=== PATIENT | female | born 1965 | race Caucasian/White ===

== ENCOUNTER 2020-01-01 14:07 | Emergency (ER) | payer MEDICAID, SELFPAY ==
[2020-01-01 14:20] VITALS: BP 139/73; PULSE 90; RESP 18; TEMP 36.9; O2SAT 97; BMI 24.3
--- NOTE | 2020-01-01 14:27 | XR_ITS ---
PROCEDURE: XR CHEST PORTABLE CLINICAL HISTORY: cough/respiratory symptoms The under COMPARISON: No exams were available for comparison FINDINGS: The cardiomediastinal silhouette and pulmonary vascularity are within normal limits. The lungs are clear without infiltrates, suspicious nodules, or pleural effusions. No acute bony abnormalities. IMPRESSION: No acute findings. Dictated by: Jonny Verma MD 01/01/2020 15:04 Electronically signed by Jonny Verma MD in [place] 01/01/2020 15:04
[2020-01-01 14:40] LABS: Basophils % 0.6 % (0.1-2.0); Hematocrit 33.6 % (37.0-47.0); Hemoglobin 13.5 g/dL (12.2-16.2); Lymphocytes % 33.3 % (10-50); Mean Corpuscular HGB Conc 40.1 g/dL (31.8-35.4); Mean Corpuscular Hemoglobin 35.6 pg (27.0-31.2); Mean Corpuscular Volume 88.8 fl (81-99); Mean Platelet Volume 8.5 fl (7.4-10.4); Monocytes % 3.7 % (1.7-9.3); Neutrophils % 61.3 % (37.0-80.0); Platelet Count 250 K/mm3 (142-424); Red Blood Count 3.78 M/mm3 (4.20-5.40); Red Cell Distribution Width 13.7 % (11.5-17.5); White Blood Count 8.2 K/mm3 (4.8-10.8)
[2020-01-01 14:41] LABS: Basophils # 0.1 K/mm3 (0-0.2); Eosinophils # 0.1 K/mm3 (0.0-0.4); Lymphocytes # 2.7 K/mm3 (0.7-4.5); Monocytes # 0.3 K/mm3 (0.1-1.0)
--- NOTE | 2020-01-01 14:46 | [facility].COUGH ---
Cough Clinic HPI - History of Present Illness Complaint:: cough HPI:: 54-year-old female with persistent cough that is dry in character and nonproductive. Present since being ill back at [facility]. Has not gotten worse nor better since that time. Denies any fever, nausea, upset stomach, diarrhea. No chest pain. History of diabetes but no history of lung disease. No inhaler use. No known sick contacts. Persistent cough is concern to her so she came in for testing/assessment. Does complain of intermittent reflux. Denies shortness of breath. Occasionally has some postnasal drip as well. Onset (ago): month(s) Severity: mild Home Medications: Home Medications Medication Instructions Recorded Confirmed Type Ascorbic Acid [Vitamin C] 1,000 mg PO BID 01/01/20 01/01/20 History Aspirin 81 mg PO DAILY 01/01/20 01/01/20 History Glimepiride 2 mg PO DAILY 01/01/20 01/01/20 History Insulin Glargine,Hum.rec.anlog 25 unit SQ DAILY 01/01/20 01/01/20 History [Lantus] Metformin HCl [Metformin 1000mg 1,000 mg PO BID 01/01/20 01/01/20 History Tablets] Allergies/Adverse Reactions: Allergies Allergy/AdvReac Type Severity Reaction Status Date / Time No Known Allergies Allergy Verified 01/01/20 14:16 Cough Clinic Triage - Symptoms Fever History: No Chills: No Myalgia: No Nasal Drainage: No Sore Throat: No Productive Cough: No Non-productive Cough: Yes Ear or Sinus Pain: No Joint Pain: No Chest Pain: No Rash: No Shortness of Breath: No Nausea or Vomitting: No Headache: Yes Abdominal Pain: No Diarrhea: No - Exposure History Foreign Travel: No Direct Contact with COVID-19 Patient: No - Risk Factors Greater than 60 Years Old: No COPD: No Diabetes: Yes Heart Disease: No Home Oxygen Use: No Chronic Renal Disease: No Chronic Liver Disease: No Neurologic/Neurodevelopmental/intellectual disability: No Other Chronic Diseases: No If Female, currently : No Current Smoker: No Former Smoker: Yes Cough Clinic History I have reviewed the patient's past medical history: Yes Medical History: Reports:: Diabetes Mellitus Type 2, Migraine Other Surgeries: Yes: , Hysterectomy-Partial, Tubal Ligation Amputation: No Fractures: No - Social History Smoking Status: Never smoker Alcohol Intake: current Alcohol Intake Frequency:: a few times a month Substance Use Type: denies use Occupational Status: employed Housing: house Household Members: family Family Hx:: No significant family history ROS Obtained: Yes Systems reviewed as appropriate & no additional complaints Cough Clinic Exam - General General appearance: alert, in no apparent distress - Head Head exam: atraumatic, normocephalic, normal inspection - Eye Eye exam: Present: normal appearance, PERRL, EOMI - ENT ENT exam: Present: normal exam, mucous membranes moist, normal external ear exam - Respiratory Respiratory exam: Present: normal lung sounds bilaterally. Absent: respiratory distress - Cardiovascular Cardiovascular exam: Present: regular rate, normal rhythm. Absent: JVD - Neurological Exam Neurological exam: Present: alert, oriented X3 Cough Clinic MDM Vital Signs: 01/01/20 14:20 01/01/20 15:36 Temperature 98.5 F 98.5 F Temperature Source Oral Oral Pulse Rate 90 Pulse Rate [Brachial] 90 Respiratory Rate 18 18 Blood Pressure 139/73 Blood Pressure [Left Arm] 139/73 Blood Pressure Mean [Left Arm] 95 Blood Pressure Source Automatic Cuff Blood Pressure Source [Left Arm] Automatic Cuff Blood Pressure Position Sitting Blood Pressure Position [Left Arm] Sitting 02 Sat by Pulse Oximetry 97 Oxygen Delivery Method Room Air - Lab Data Lab Results 01/01/20 14:29: WBC 8.2, RBC 3.78 L, Hgb 13.5, Hct 33.6 L, MCV 88.8, MCH 35.6 H, MCHC 40.1 H*, RDW 13.7, Plt Count 250, MPV 8.5, Neut % (Auto) 61.3, Lymph % (Auto) 33.3, [place] % (Auto) 3.7, Eos % (Auto) 1.0, Baso % (Auto) 0.6, Neut # (Auto) 5.0, Lymph
[2020-01-01 15:36] VITALS: BP 139/73; PULSE 90; RESP 18; TEMP 36.9; O2SAT 97
== END 2020-01-01 15:36 | disposition home or self-care (01) ==
PROVIDERS: Emergency Provider Internal Medicine Adolescent Medicine; PCP Family Medicine
DX: R05 Cough (principal); E11.9 Type 2 diabetes mellitus without complications; Z79.4 Long term (current) use of insulin; G43.709 Chronic migraine without aura, not intractable, without status migrainosus; Z79.84 Long term (current) use of oral hypoglycemic drugs
CPT/HCPCS: 36415; 71045; 85025; 87275; 87276; 99201; 99213

== ENCOUNTER → 2020-01-28 16:35 | Outpatient (CLI) | payer MEDICAID, SELFPAY ==
--- NOTE | 2020-01-28 | XR_ITS ---
PROCEDURE: XR CHEST 2V CLINICAL HISTORY: COMPARISON: XR CHEST PORTABLE from 01/01/2020 FINDINGS: The cardiomediastinal silhouette and pulmonary vascularity are within normal limits. The lungs are clear without infiltrates, suspicious nodules, or pleural effusions. There is calcified granuloma in the left lower lobe. No acute bony findings. IMPRESSION: No acute findings. Dictated by: Jonny Verma MD 01/28/2020 17:14 Electronically signed by Jonny Verma MD in [place] 01/28/2020 17:14
== END ==
PROVIDERS: PCP Nurse Practitioner; Visit Provider Nurse Practitioner
DX: R05 Cough (principal)
CPT/HCPCS: 71046

== ENCOUNTER → 2020-03-11 13:29 | Outpatient (CLI) | payer MEDICAID, SELFPAY ==
[2020-03-11 16:10] LABS: Blood Urea Nitrogen 15 mg/dl (7-17); Estimated Glomerular Filt Rate 128 ml/min (>60); GFR (African American) 154 ML/MIN (>60)
== END ==
PROVIDERS: PCP Nurse Practitioner; Visit Provider Nurse Practitioner
DX: R05 Cough (principal)
CPT/HCPCS: 36415; 82565; 84520; 94060; 94726; 94729

== ENCOUNTER → 2020-03-14 11:02 | Outpatient (CLI) | payer MEDICAID, SELFPAY ==
--- NOTE | 2020-03-14 11:04 | CT_ITS ---
PROCEDURE: CT CHEST W CON CLINCAL INDICATION: COUGH,PULMONARY NODULE COMPARISON: XR CHEST PORTABLE from 01/01/2020 XR CHEST 2V from 01/28/2020 TECHNIQUE: IV Contrast: 75ml Optiray 350 Axial images obtained with sagittal and coronal reformats. All CT scans at the facility use one or more dose reduction, viz: automated exposure control, ma/kV adjustment per patient size (including targeted exams where dose is matched to indication, i.e. head), or iterative reconstruction technique. FINDINGS: HEART AND MEDIASTINAL STRUCTURES: There is a 15 mm nodule of the left thyroid gland which may be better evaluated with ultrasound. LUNGS AND PLEURAL SPACES: Unremarkable. Calcified granuloma left lung base BONY STRUCTURES: No acute bony abnormalities apparent. UPPER ABDOMEN: Fatty liver ADDITIONAL FINDINGS: No other significant abnormalities. IMPRESSION: No acute finding. 15 mm left thyroid nodule with irregular margins. Ultrasound suggested for further evaluation Dictated by: Jonny Verma MD 03/15/2020 13:30 Electronically signed by Jonny Verma MD in [facility] 03/15/2020 13:30
== END ==
PROVIDERS: PCP Nurse Practitioner; Visit Provider Nurse Practitioner
DX: R05 Cough (principal); R91.1 Solitary pulmonary nodule
CPT/HCPCS: 71260; Q9967

== ENCOUNTER → 2020-08-24 11:59 | Outpatient (CLI) | payer MEDICAID, SELFPAY ==
[2020-08-24 12:54] LABS: Basophils # 0.1 K/mm3 (0-0.2); Basophils % 0.6 % (0.1-2.0); Eosinophils # 0.1 K/mm3 (0.0-0.4); Eosinophils % 0.8 % (0.1-12.0); Hemoglobin 15.9 g/dL (12.2-16.2); Lymphocytes % 23.4 % (10-50); Mean Corpuscular HGB Conc 33.8 g/dL (31.8-35.4); Mean Corpuscular Hemoglobin 29.8 pg (27.0-31.2); Monocytes # 0.3 K/mm3 (0.1-1.0); Monocytes % 3.4 % (1.7-9.3); Neutrophils # 6.3 K/mm3 (1.8-7.8); Platelet Count 276 K/mm3 (142-424); Red Blood Count 5.34 M/mm3 (4.20-5.40); White Blood Count 8.7 K/mm3 (4.8-10.8)
[2020-08-25 14:08] LABS: Covid-19 Nasal PCR Sendout Lex Not Detected
== END ==
PROVIDERS: PCP Nurse Practitioner; Visit Provider Nurse Practitioner
DX: Z03.818 Encounter for observation for suspected exposure to other biological agents ruled out (principal)
CPT/HCPCS: 36415; 85025; U0004